=== PATIENT | female | born 1985 | race American Indian/Alaskan Native ===

== ENCOUNTER 2018-06-16 11:00 | Day surgery (SDC) | payer OTHER ==
[~2018-06-16 11:00] MED LIST: ANCEF/STERILE WATER 2 GM/20 ML IV NR; DILAUDID IV PRN; FLAGYL/NS 1000 MG-200 ML 500 MG in VIAFLEX EMPTY CONTAINER 1 ML IV NR; LACTATED RINGERS 1,000 ML IV SCH; VERSED IV NR; ZOFRAN IV PRN
[2018-06-16] MEDS ORDERED: NACL BACTERIOSTATIC INFILTRATI ONE (12:07)
[2018-06-16] MEDS ORDERED: FLAGYL 500 MG/100 ML 500 MG/100 ML BAG IV NR (12:34)
[2018-06-16 12:35] LABS: Basophils # (Auto) 0.1 K/mm3 (0.0-0.1); Basophils % (Auto) 1.6 % (0.0-1.8); Eosinophils # (Auto) 0.1 K/mm3 (0.0-0.4); Eosinophils % (Auto) 1.6 % (0.0-4.3); Hematocrit 29.2 % (30.3-42.9); Hemoglobin 9.2 gm/dl (10.1-14.3); Lymphocytes # (Auto) 2.9 K/mm3 (1.2-5.4); Mean Corpuscular HGB Conc 32 % (30-34); Monocytes # (Auto) 0.4 K/mm3 (0.0-0.8); Monocytes % (Auto) 5.9 % (0.0-7.3); Platelet Count 295 K/mm3 (140-440); Red Cell Distribution Width 19.8 % (13.2-15.2)
[2018-06-16 12:50] LABS: Mean Corpuscular Hemoglobin 21 pg (28-32); Mean Corpuscular Volume 68 fl (79-97)
[2018-06-16] MEDS ORDERED: FLAGYL 500 MG/100 ML 500 MG/100 ML BAG IV SCH (13:00)
--- NOTE | 2018-06-16 13:32 | Anesthesia Day of Surgery ---
Anesthesia Day of Surgery - Day of Surgery Patient Examined: Yes Patient H&P Reviewed: Yes Patient is NPO: Yes
--- NOTE | 2018-06-16 13:32 | Anesthesia Consultation ---
Anesthesia Consult and Med Hx Date of service: 06/16/18 - Airway Anesthetic Teeth Evaluation: Good ROM Head & Neck: Adequate Mental/Hyoid Distance: Adequate Mallampati Class: Class I Intubation Access Assessment: Good - Pulmonary Exam CTA: Yes - Cardiac Exam Cardiac Exam: RRR - Pre-Operative Health Status ASA Pre-Surgery Classification: ASA2 Proposed Anesthetic Plan: General - Pulmonary Hx Smoking: Yes - Cardiovascular System Hx Hypertension: Yes (DURING ONLY) - Hematic Hx Anemia: Yes (WITH RUPTURED FALLOPIAN TUBE) - Other Systems Hx Alcohol Use: Yes (OCCASIONALLY) Hx Substance Use: No Hx Cancer: No
[2018-06-16] MEDS ORDERED: MARCAINE 0.5% INFILTRATI ONE (13:39)
[2018-06-16] MEDS ORDERED: XYLOCAINE 1%/ EPI 1:100,000 INFILTRATI ONE ×2 (13:40→13:48)
[2018-06-16] MEDS ORDERED: DIPRIVAN 10 MG/ML IV ONE (13:43)
[2018-06-16] MEDS ORDERED: ZEMURON IV ONE (13:44)
[2018-06-16] MEDS ORDERED: XYLOCAINE MPF 2% ONE (13:44)
[2018-06-16] MEDS ORDERED: DILAUDID ONE (13:47)
[2018-06-16] MEDS ORDERED: NUPERCAINAL PR ONE (13:48)
[2018-06-16] MEDS ORDERED: NACL 0.9% IR ONE (13:48)
[2018-06-16] MEDS ORDERED: MARCAINE 0.25% INFILTRATI ONE (13:48)
[2018-06-16] MEDS ORDERED: NUPERCAINAL ONE (14:25)
[2018-06-16] MEDS ORDERED: ZOFRAN ONE (14:29)
[2018-06-16] MEDS ORDERED: TORADOL ONE (14:29)
[2018-06-16] MEDS ORDERED: ROBINUL ONE (14:29)
[2018-06-16] MEDS ORDERED: BLOXIVERZ ONE (14:29)
--- NOTE | 2018-06-16 14:32 | Post Operative Note ---
Pre-op diagnosis: External thrombosed hemorrhoids Post-op diagnosis: same Findings: Exrt thromb hemorrhoid left lateral column Procedure: EUA, excision thrombosed hemorrhoid Anesthesia: GETA Surgeon: SHARON SELF Pathology: list (thrombosed hemorrhoid) Specimen disposition: to lab Condition: stable Disposition: PACU
--- NOTE | 2018-06-16 14:34 | Discharge Summary ---
Short Stay Discharge Plan Weight Bearing Status: Full Weight Bearing Diet: regular Wound: change dressing (tomorrow a.m start Sitzs baths TID) [facility] - 7 Days Prescriptions: Ketorolac [Toradol] 10 mg PO Q6H PRN #20 tablet PRN Reason: Pain oxyCODONE /ACETAMINOPHEN [Percocet 5/325] 1 tab PO Q6HR PRN #20 tablet PRN Reason: Pain
--- NOTE | 2018-06-16 14:56 | Operative Report ---
PREOPERATIVE DIAGNOSIS: External thrombosed hemorrhoid. POSTOPERATIVE DIAGNOSIS: External thrombosed hemorrhoid. OPERATIVE PROCEDURE: Exam under anesthesia and resection of external thrombosed hemorrhoid. ANESTHESIA: General endotracheal. SPECIMENS: Thrombosed hemorrhoid. BLOOD LOSS: Minimal. INDICATIONS: A 33-year-old female patient presenting with painful external thrombosed hemorrhoid for the past one week or 8 days. She was started on nonoperative management. She did not have any relief and she is brought in for resection. FINDINGS: External thrombosed hemorrhoid at the left lateral column with no extension to the internal hemorrhoids. Speculum examination revealed smaller hemorrhoid at 3, 7, and 11 o'clock position. No fissure or fistula evident. No abscess evident. DESCRIPTION OF PROCEDURE: After satisfactory induction of general endotracheal anesthesia on the stretcher, the patient was transferred to the operating table with appropriate protective devices and placed in jackknife position. Gluteal folds were . Operative area prepped and draped. Sacrococcygeal block with Marcaine was given. A V-shaped incision was made at the anal skin extending towards the anoderm and the hemorrhoidal mass was completely removed. Minimal bleeding from the edges was controlled by cautery. The edges were approximated with a 2-0 Vicryl suture and the lateral 5 mm was left open for to drain postoperatively. She tolerated the procedure well. JOB# [id number] GUILLERMINAN/NTS
[2018-06-16] MEDS ORDERED: ZOFRAN IV ONE (16:01)
[2018-06-16 16:40] VITALS: BP 115/75
== END 2018-06-16 16:30 | disposition home or self-care (01) ==
LOC: OR 11:00
PROVIDERS: ATTEND Surgery
DX: K64.5 Perianal venous thrombosis (principal); I10 Essential (primary) hypertension; F41.9 Anxiety disorder, unspecified; F32.9 Major depressive disorder, single episode, unspecified; M19.90 Unspecified osteoarthritis, unspecified site; F43.10 Post-traumatic stress disorder, unspecified; F17.200 Nicotine dependence, unspecified, uncomplicated; E66.9 Obesity, unspecified; Z68.31 Body mass index [BMI] 31.0-31.9, adult; Z79.899 Other long term (current) drug therapy; Z72.89 Other problems related to lifestyle; Z98.891 History of uterine scar from previous surgery; Z98.890 Other specified postprocedural states
CPT/HCPCS: 36415; 46320; 81025; 85025; 88304; J0690; J1170; J1885; J2250; J2405; J2704; J2710; J7120